=== PATIENT | female | born 1985 | race Caucasian/White ===

== ENCOUNTER 2021-01-04 14:17 | Emergency (ER) | payer MEDICAID, OTHER ==
[~2021-01-04] VITALS: Ht 166 cm; Wt 75.0 kg
[2021-01-04] MEDS ORDERED: ACHD5005 PO (14:51)
[2021-01-04] MEDS ORDERED: DOXY100T2 PO ×2 (14:51→14:55)
--- NOTE | 2021-01-04 14:51 | ED Integumentary General ---
General Chief Complaint: Bite-Animal/Human/Insect Stated Complaint: POSS SPIDER BITE;FEVER;COUGH Nursing Triage Note: THE PT IS AMBULATORY TO THE ROOM WITHOUT DIFFICULTY. NO DISTRESS IS SEEN ON ARRIVAL. LOC IS NORMAL FOR THE PT. THE PT C/O OF A SPIDER BITE TO HER RIGHT UPPER ARM. Source: patient Exam Limitations: no limitations History of Present Illness Date Seen by Provider: Jan 04, 2021 Time Seen by Provider: 14:46 Initial Comments To ER with reports of a suspected spider bite to the volar surface of the right upper arm noticed a few days ago upon awakening from sleep. No fever no chills no hematuria no joint pain no muscle pain. Timing/Duration: yesterday Severity: moderate Associated Symptoms: denies symptoms Allergies and Home Medications Home Medications Doxycycline Hyclate 100 Mg Tablet, 100 MG PO BID Prescribed by: AVTAR SAMUEL on 01/04/21 1451 Hydrocodone/Acetaminophen 1 Each Tablet, 1 TAB PO Q4H PRN for PAIN-MODERATE (5- 7) Prescribed by: AVTAR SAMUEL on 01/04/21 1452 Patient Home Medication List Home Medication List Reviewed: Yes Review of Systems Review of Systems Constitutional: see HPI; No chills, No fever, No malaise, No weakness EENTM: see HPI Respiratory: no symptoms reported Cardiovascular: no symptoms reported Genitourinary: no symptoms reported Musculoskeletal: see HPI Skin: see HPI Psychiatric/Neurological: No Symptoms Reported Physical Exam Vital Signs Vital Signs - First Documented 01/04/21 14:28 Temp 36.6 Pulse 96 Resp 16 B/P (MAP) 148/97 (114) Pulse Ox 100 Capillary Refill : Less Than 3 Seconds General Appearance: WD/WN, no apparent distress HEENT: PERRL/EOMI, normal ENT inspection Respiratory: no respiratory distress, no accessory muscle use Neurologic/Psychiatric: alert, normal mood/affect, oriented x 3 Skin: normal color, warm/dry Skin Problem Location: upper extremities Skin Problem Character: other (Well demarcated erythema to the volar aspect of the upper arm. Within this is a dime sized area of purplish tissue likely to become necrotic. She has no systemic symptoms) Progress/Results/Core Measures Results/Orders Vital Signs/I&O 01/04/21 14:28 Temp 36.6 Pulse 96 Resp 16 B/P (MAP) 148/97 (114) Pulse Ox 100 Blood Pressure Mean: 114 Departure Communication (Admissions) She has made an appointment for her primary care provider Michael Braga out of [place] for this Saturday. Impression Primary Impression: Spider bite wound Disposition: HOME, SELF-CARE Condition: Stable Departure-Patient Inst. Decision time for Depature: 14:47 Patient Instructions: Insect Bites and Stings (DC) Add. Discharge Instructions: 1. Continue with cold compresses to the area 2. Return to ER for any concerns 3. Keep your appointment with Michael Braga. All discharge instructions reviewed with patient and/or family. Voiced understanding. Scripts Doxycycline Hyclate (Doxycycline Hyclate) 100 Mg Tablet 100 MG PO BID, #20 TAB 0 Refills . Prov: AVTAR SAMUEL APRN 01/04/21 Hydrocodone/Acetaminophen (Hydrocodone-Acetamin 5-325 mg) 1 Each Tablet 1 TAB PO Q4H PRN for PAIN-MODERATE (5-7), #14 TAB Prov: AVTAR SAMUEL APRN 01/04/21 AVTAR SAMUEL APRN Jan 04, 2021 14:51
[2021-01-04 14:58] VITALS: BP 105/72
== END 2021-01-04 15:01 | disposition home or self-care (01) ==
LOC: ER 14:22
DX: T63.301A Toxic effect of unspecified spider venom, accidental (unintentional), initial encounter (principal)
CPT/HCPCS: 99283